=== PATIENT | female | born 1980 | race Caucasian/White ===

== ENCOUNTER 2016-10-15 08:34 | Emergency (ER) | payer OTHER ==
[2016-10-15 08:39] VITALS: BP 133/72; TEMP 98.2; BMI 28.3
[2016-10-15] MEDS ORDERED: KETOROLAC TROMETHAMINE 30 MG/1 ML VIAL IVPUSH PRN (09:40)
[2016-10-15] MEDS ORDERED: ONDANSETRON 4 MG/2 ML VIAL IVPUSH ONE (09:41)
[2016-10-15] MEDS ORDERED: KETOROLAC TROMETHAMINE 30 MG/1 ML VIAL ONE (09:45)
[2016-10-15] MEDS ORDERED: SODIUM CHLORIDE 1,000 ML IV SCH (09:45)
[2016-10-15] MEDS ORDERED: ONDANSETRON 4 MG/2 ML VIAL ONE (09:46)
[2016-10-15 10:16] LABS: BASOPHIL 0.4 % (0-2.0); EOSINOPHIL 0.8 % (0-4.5); MCHC 33.1 g/dl (32.0-36.0); MEAN CELL VOLUME 87.7 fl (80-96); MEAN PLT VOLUME 8.1 fl (7.5-11.1); NEUTROPHILS 75.2 % (42.8-82.8); PLATELET COUNT 209 K/MM3 (134-434); RDW 13.8 % (11.6-15.6); WHITE BLOOD COUNT 6.1 K/mm3 (4.0-10.0)
[2016-10-15 10:32] LABS: ALBUMIN 3.5 g/dl (3.4-5.0); ANION GAP 7 (8-16); BILIRUBIN,TOTAL 1.1 mg/dL (0.2-1.0); CALCIUM 8.3 mg/dL (8.5-10.1); CO2 26 mmol/L (21-32); COCKROFT - GAULT 154.6235; CREATININE 0.6 mg/dL (0.55-1.02); GLUCOSE,RANDOM 89 mg/dL (74-106); SGPT/ALT 23 U/L (12-78); TOT PROT 6.6 g/dl (6.4-8.2)
[2016-10-15 10:33] LABS: ALK PHOS 66 U/L (45-117)
[2016-10-15 10:48] LABS: URINE APPEARANCE SLCLOUDY; URINE BILIRUBIN NEGATIVE (NEGATIVE); URINE COLOR YELLOW; URINE GLUCOSE (UA) NEGATIVE (NEGATIVE); URINE KETONE NEGATIVE (NEGATIVE); URINE NITRITE NEGATIVE (NEGATIVE); URINE UROBILINOGEN NEGATIVE E.U./dl (0.2-1.0)
[2016-10-15 10:58] LABS: URINE BLOOD 3+ (NEGATIVE); URINE LEUK ESTERASE 3+ (NEGATIVE); URINE PROTEIN 2+ (NEGATIVE)
[2016-10-15 11:01] LABS: SGOT/AST 29 U/L (15-37)
[2016-10-15 11:07] LABS: URINE RBC 3202 /hpf (0-3); URINE WBC 33 /hpf (3-5)
[2016-10-15] MEDS ORDERED: morphine CARPU-JECT 4 MG/1 ML DISP.SYRIN IVPUSH ONE (11:20)
--- NOTE | 2016-10-15 11:43 | PDOC ---
Attending Attestation - Resident Resident Name: MarrWally - ED Attending Attestation I have performed the following: I have examined & evaluated the patient, The case was reviewed & discussed with the resident, I agree w/resident's findings & plan, Exceptions are as noted - HPI HPI: 10/15/16 11:41 Agree with the resident's HPI as documented in the electronic medical record. - Physicial Exam PE: 10/15/16 11:41 Agree with the resident's physical examination as documented in the electronic medical record. - Medical Decision Making 10/15/16 11:41 35-year-old female with history of nephrolithiasis status post lithotripsy and stent placement last week presents to the emergency Department with complaints of left flank pain radiating to the left lower quadrant and dysuria. Differential diagnosis includes but is not limited to: Stent movement, stent malfunction, stent pain, nephrolithiasis, pyelonephritis, UTI. Plan: 1. Labs 2. Urine analysis 3. Pain management 4. Ultrasound to rule out hydronephrosis 5. KUB to ensure proper stent placement 6. Will consult the patient's urologist to discuss the case 7. Observe and reevaluate
[2016-10-15] MEDS ORDERED: morphine CARPU-JECT 4 MG/1 ML DISP.SYRIN ONE (11:53)
--- NOTE | 2016-10-15 12:06 | PDOC ---
History of Present Illness - General Chief Complaint: Nausea/Vomiting Stated Complaint: POST-OP/ VOMITING Time Seen by Provider: 10/15/16 08:59 History Source: Patient Exam Limitations: No Limitations - History of Present Illness Initial Comments: 35 yoF w/ h/o diverticulosis and L renal stone presented to the ED with nausea, vomiting and L flank pain. She underwent lithotripsy and stent placement by Dr. Fowler last Sunday and was given flomax, kelflex and percocet. On Sunday night , she started feeling nausea and 5 episodes of bilious vomiting, last episode was 2 am. She also has hematuria with L flank pain, non-radiating, 8/10, worse with urination. In 2013, she had abd CT which showed L kidney stone. Denies fever, chills, chest pain, sob, abd pain, dizziness, headache and bowel symptom. Associated Symptoms: reports: nausea/vomiting Past History - Past Medical History Allergies/Adverse Reactions: Allergies Allergy/AdvReac Type Severity Reaction Status Date / Time ibuprofen AdvReac Verified 10/15/16 08:40 Home Medications: Ambulatory Orders Buspirone HCl [Buspar -] 5 mg PO BID 10/15/16 Nitrofurantoin Macrocrystal [Macrodantin -] 100 mg PO BID #14 tab 10/15/16 Ondansetron Oral Solution [Zofran Oral Solution -] 4 mg PO BID PRN #8 ml Oxybutynin Chloride [Oxybutynin Chloride ER] 5 mg PO DAILY #7 tab.er.24 Tramadol HCl 50 mg PO Q6H PRN #16 tablet MDD 400mg 10/15/16 GI Disorders: Yes (DIVERTICULITIS) Kidney Stones: Yes - Surgical History Cholecystectomy: Yes Gastric Stapling: Yes (sleeve 04/2013) - Reproductive History (#): 3 Para: 2 Therapeutic (s) & number: Yes (1) - Immunization History Immunization Up to Date: No - Psycho/Social/Smoking Cessation Hx Anxiety: No Suicidal Ideation: No Smoking Status: Yes Smoking History: Never smoked Number of Cigarettes Smoked Daily: 4 'Breaking Loose' booklet given: 07/19/13 Hx Alcohol Use: Yes (SOCIAL) Drug/Substance Use Hx: No Substance Use Type: None Review of Systems - Review of Systems Constitutional: Yes: Malaise HEENTM: Yes: Nose Congestion Respiratory: No: Shortness of Breath Cardiac (ROS): No: Chest Pain, Lightheadedness, Syncope ABD/GI: Yes: Abdominal cramping. No: Abdominal Distended, Constipated, Diarrhea : Yes: Hematuria, Pain Musculoskeletal: Yes: Back Pain *Physical Exam - Vital Signs Last Vital Signs Temp Pulse Resp BP Pulse Ox 98.2 F 66 20 133/72 100 10/15/16 08:36 10/15/16 08:36 10/15/16 08:36 10/15/16 08:36 10/15/16 08:36 - Physical Exam General Appearance: Yes: Apparent Distress HEENT: positive: Pharynx Normal Neck: positive: Trachea midline, Supple Respiratory/Chest: positive: Lungs Clear, Normal Breath Sounds. negative: Crackles, Rhonchi, Wheezing Cardiovascular: positive: Regular Rhythm, Regular Rate, S1, S2 Gastrointestinal/Abdominal: positive: Tenderness (LUQ) Musculoskeletal: positive: CVA Tenderness (Left) Extremity: positive: Normal Range of Motion. negative: Swelling, Calf Tenderness ED Treatment Course - LABORATORY CBC & Chemistry Diagram: 10/15/16 09:43 10/15/16 09:43 - ADDITIONAL ORDERS Additional order review: Laboratory Results 10/15/16 10/15/16 10/15/16 11:24 10:10 09:43 Sodium Potassium Chloride Carbon Dioxide Anion Gap BUN Creatinine Creat Clearance w eGFR Random Glucose Calcium Phosphorus 3.0 Magnesium 2.0 Total Bilirubin AST ALT Alkaline Phosphatase Total Protein Albumin Urine Color Yellow Urine Appearance Slcloudy Urine pH 9.0 H D Ur Specific [place] 1.013 Urine Protein 2+ H Urine Glucose (UA) Negative Urine Ketones Negative Urine Blood 3+ H Urine Nitrite Negative Urine Bilirubin Negative Urine Urobilinogen Negative Ur Leukocyte Esterase 3+ H Urine RBC 3202 Urine WBC 33 Urine HCG, Qual Negative 10/15/16 09:43 Sodium 140 Potassium 4.5 D Chloride 107 Carbon Dioxide 26 Anion Gap 7 L BUN 9 D Creatinine 0.6 Creat Clearance w eGFR > 60 Random Glucose 89 Calcium 8.3 L Phosphorus Magnesium Total Bilirubin 1.1 H D AST 29 D ALT 23 Alkaline Phosphatase 66 Total Protein 6.6 Albumin 3.5 Urine Color Urine Appearance Urine pH Ur Specific [place] Urine Protein Urine Glucose (UA) Urine Ketones Urine Blood Urine Nitrite Urine Bilirubin Urine Urobilinogen Ur Leukocyte Esterase Urine RBC Urine WBC Urine HCG, Qual 10/15/16 09:43 RBC 3.91 MCV 87.7 MCHC 33.1 RDW 13.8 D MPV 8.1 Neutrophils % 75.2 Lymphocytes % 18.7 D Monocytes % 4.9 Eosinophils % 0.8 Basophils % 0.4 - RADIOLOGY Radiology Studies Ordered: Category Date Time Status KIDNEY / RENAL US [US] Stat Ultrasound 10/15/16 09:39 Completed - Medications Given in the ED: ED Medications Discontinued Medications Generic Name Dose Route Start Last Admin Trade Name Larisa PRN Reason Stop Dose Admin Morphine Sulfate 4 mg 10/15/16 11:20 10/15/16 12:00 Morphine Injection - IVPUSH 10/15/16 11:21 4 mg ONCE ONE Administration Ondansetron HCl 4 mg 10/15/16 09:41 10/15/16 09:57 Zofran Injection IVPUSH 10/15/16 09:42 4 mg ONCE ONE Administration Medical Decision Making - Medical Decision Making 10/15/16 12:08 35 yo f w/ h/o diverticulosis and L renal stone s/p lithotripsy and stent placement presented to the ED with L flank pain, nausea and vomiting. Differential diagnosis include hydnephrosis, retained stone, UTI, diverticulolitis. Will send CBC w/ diff, CMP with Mg and Phos, Sonogram of kidneys, test, KUB flat plate. Will give toradol and morphine if pain not controlled. 10/15/16 12:20 UA showed 30 WBC, renal sonogram showed 5mm stone which failed to pass. Will give macrobid 100mg once and get KUB flat plate 10/15/16 12:[address] Frederick Perkins. Patient's symptoms are likely caused by spasm and she can be discharged home with Ultram 50mg Q6h, oxybutynin 5mg BID, a urine strainer, reglan 10mg Q6H. Dr. Perkins will remove the stent on Sunday. 10/15/16 12:43 *DC/Admit/Observation/Transfer Diagnosis at time of Disposition: Renal colic - Discharge Dispostion Disposition: HOME Condition at time of disposition: Improved Admit: No - Prescriptions Prescriptions: Nitrofurantoin Macrocrystal [Macrodantin -] 100 mg PO BID #14 tab Oxybutynin Chloride [Oxybutynin Chloride ER] 5 mg PO DAILY #7 tab.er.24 Tramadol HCl 50 mg PO Q6H PRN #16 tablet MDD 400mg PRN Reason: Pain Ondansetron Oral Solution [Zofran Oral Solution -] 4 mg PO BID PRN #8 ml PRN Reason: Nausea - Referrals Referrals: Daren Perkins [Primary Care Provider] - - Patient Instructions Printed Discharge Instructions: Kidney Stones -- Adult, DI for Nausea -- Adult , DI for Vomiting -- Adult Additional Instructions: Please take all the medications as directed and follow up with your urologist on Sunday to remove the stent.
[2016-10-15] MEDS ORDERED: NITROFURANTOIN MACROCRYSTAL 50 MG CAPSULE (FP) PO SCH (12:30)
[2016-10-15] MEDS ORDERED: NITROFURANTOIN MACROCRYSTAL 50 MG CAPSULE (FP) ONE (13:00)
[2016-10-15 14:57] VITALS: PULSE 52
== END 2016-10-15 14:57 | disposition home or self-care (01) ==
LOC: JER 08:34
PROC: 3E0337Z Introduction of Electrolytic and Water Balance Substance into Peripheral Vein, Percutaneous Approach (ICD-10-PCS; principal; 2016-10-15)
PROC: 3E033NZ Introduction of Analgesics, Hypnotics, Sedatives into Peripheral Vein, Percutaneous Approach (ICD-10-PCS; 2016-10-15)
PROC: 3E0333Z Introduction of Anti-inflammatory into Peripheral Vein, Percutaneous Approach (ICD-10-PCS; 2016-10-15)
PROC: 3E033GC Introduction of Other Therapeutic Substance into Peripheral Vein, Percutaneous Approach (ICD-10-PCS; 2016-10-15)
DX: N20.0 Calculus of kidney (principal)
CPT/HCPCS: 36415; 74000-TC; 76775-TC; 80053; 81003; 81015; 83735; 84100; 84703; 85025; 87086; 96361; 96374; 96375; 99282-25